=== PATIENT | female | born 1970 | race Two or more races ===

== ENCOUNTER 2024-10-27 07:31 | Day surgery (SDC) | payer BC, SELFPAY ==
[2024-10-23 09:25] VITALS: BMI 30.7
[2024-10-24 13:17] LABS: Basophils # (Auto) 0.1 Thou/mm3 (0.0-0.2); Basophils % (Auto) 1 % (0-2.5); Eosinophils # (Auto) 0.1 Thou/mm3 (0.0-0.5); Eosinophils % (Auto) 2 % (0-10); Hematocrit 43.1 % (36.0-46.0); Hemoglobin 14.3 g/dL (12.0-16.0); Immature Granulocytes % (Auto) 0 % (0-0); Immature Granulocytes Auto 0.01 Thou/mm3 (0.00-0.00); Lymphocytes # (Auto) 1.4 Thou/mm3 (1.0-4.8); Lymphocytes % (Auto) 27 % (10-50); Mean Corpuscular HGB Conc 33.2 g/dl (31.0-37.0); Mean Corpuscular Hemoglobin 27.5 pg (25.0-35.0); Mean Corpuscular Volume 83 fL (80-100); Monocytes # (Auto) 0.4 Thou/mm3 (0.0-0.8); Monocytes % (Auto) 8 % (0-12); Neutrophils % (Auto) 61 % (37-80); Nucleated Red Blood Cell % 0 /100 WBC (0); Platelet Count 314 Thou/mm3 (140-440); RDW Standard Deviation 41.2 fL (36.4-46.3)
[2024-10-24 13:29] LABS: Partial Thromboplastin Time 29.3 Seconds (22.0-36.0); Prothrombin Time 10.8 Seconds (9.0-12.2)
[2024-10-24 13:32] LABS: Anion Gap 9 (7-16); BUN/Creatinine Ratio 11 Ratio (12-20); Blood Urea Nitrogen 11 mg/dL (9-23); Calcium 10.1 mg/dL (8.3-10.6); Carbon Dioxide 29.3 mMol/L (20.0-31.0); Chloride 103 mMol/L (98-107); Estimated Creatinine Clearance 53.7 mL/min (>60); Glucose 106 mg/dL (74-106); Osmolality,Calculated 280 (275-295); Potassium 4.1 mMol/L (3.4-5.1); Sodium 141 mMol/L (136-145); eGFR > 60 See Note
[2024-10-27] VITALS (9 sets, daily range): BP systolic 145–175; BP diastolic 61–97; PULSE 52–65; RESP 13–20; TEMP 36.2–36.8; O2SAT 97–100
--- NOTE | 2024-10-27 12:35 | ESOP_ITS ---
RE: LEVY DIEHL : 1970 DATE OF OPERATION: 10/27/2024 REFERRING PHYSICIAN: Angus Gotti MD PROCEDURE: Left heart catheterization, LV angiography, selective left and right coronary angiography, selective right femoral arterial angiography, and angioseal closure of the right femoral arterial puncture site. INDICATION OF PROCEDURE: The patient with history of chronic hypertension, history of hyperlipidemia, history of cardiac arrhythmia, symptoms of anginal chest pains, and positive EKG changes on exercise stress test though no segmental left ventricular wall motion abnormalities were noted on the stress echo study. The patient continues to have symptoms of anginal chest pain in spite of medical management. DETAILS OF THE PROCEDURE: After explaining the procedure in detail to the patient and after obtaining a proper consent, the patient was given a total of 2 mg of intravenous Versed and 4 mg of intravenous morphine before and during the procedure. The right groin area was prepped with antiseptic solution. Local anesthetic 2% lidocaine was used and right femoral artery was punctured by Seldinger technique and a Hemoclip sheath size 6-Kosovan was put in the right femoral artery. Through the sheath, a pigtail catheter size 6-Kosovan was advanced and positioned in the ascending aorta. Aortic pressures were recorded and catheter placed across the aortic valve into the left ventricle. Left ventricular pressure was recorded and LV angiography was performed in [place] view using 36 mL of dye at a rate of 12 mL per second over a period of 3 seconds. After the left ventricular angiography, the pullback pressure recorded from left ventricle into the aorta. Pigtail catheter was exchanged with pre-formed left coronary René catheter size 6-Kosovan JL4, which was advanced with the help of a J-wire and tip positioned over the left coronary ostium. Several views of the left coronary artery were taken and after the left coronary angiography, the catheter was exchanged with pre-formed right coronary René catheter size 6-Kosovan JR4, which was advanced with the help of a J-wire and tip positioned over right coronary ostium. Three views of the right coronary artery were taken and after the right coronary angiography, the catheter was pulled out and right femoral arterial angiography were performed in [place] as well as in [place] views. As the arterial puncture site was above the bifurcation, the right common femoral artery and right femoral angiography were normal. A 6-Kosovan angioseal catheter was used to obtain hemostasis of the right femoral arterial puncture site. The patient tolerated the procedure very well without any complication. RESULTS OF THE PROCEDURE: The hemodynamic data showed aortic pressure 165/82 with a mean of 115. The left ventricular pressure is 169/21. Post angiography, left ventricular pressure is 163/27. There is no gradient noted across the aortic valve on pullback pressure. Left ventricular angiography showed normal sized left ventricle with normal left ventricular systolic function and left ventricular ejection fraction of 65%. No evidence of mitral regurgitation is noted. No evidence of segmental left ventricular wall motion abnormalities are noted. The coronary angiography showed left main coronary artery is normal. The left anterior descending coronary artery is normal. The diagonal and septal branches are normal. The circumflex coronary artery is normal. The right coronary angiography showed dominant right coronary artery, which showed tortuosity, though it is free of any luminal narrowing. Good distal flow in the right coronary artery is noted. The right femoral arterial angiography is normal and arterial puncture site is above the bifurcation of the right common femoral artery. FINAL IMPRESSION: 1. Normal coronary angiography. 2. Normal sized left ventricle with normal left ventricular systolic function. 3. Normal right femoral arterial angiography. RECOMMENDATION: The patient recommended continuation of medical management for the control of the symptoms. cc: Angus Gotti MD DT: 10:45:09 TT: 12:34:00 Ref: [id number] - TID: [id number]
== END 2024-10-27 12:40 | disposition home or self-care (01) ==
PROVIDERS: PCP Family Medicine; Referring Provider Internal Medicine Cardiovascular Disease; Visit Provider Internal Medicine Cardiovascular Disease
PROC: (CPT 93458; principal; 2024-10-27 08:30)
DX: I20.9 Angina pectoris, unspecified (principal); I49.9 Cardiac arrhythmia, unspecified; I10 Essential (primary) hypertension; E78.5 Hyperlipidemia, unspecified
CPT/HCPCS: 93458; 36415; 80048; 85025; 85610; 85730; 99152; 99153; A4649; C1760; C1887; J0461; J1643; J2250; J2270; J2310; J2371; J3490; Q9967